=== PATIENT | female | born 1955 | race Caucasian/White ===

== ENCOUNTER 2019-07-27 09:07 | Emergency (ER) | payer BC ==
[~2019-07-27] VITALS: Ht 147.3 cm; Wt 63.5 kg
[2019-07-27 09:13] VITALS: BP_SYST 128
--- NOTE | 2019-07-27 09:52 | NUR ---
Patient to ER bed 7 to gown for evaluation. Side rails up. Report given to Vernon FELICIANO.
--- NOTE | 2019-07-27 09:53 | NUR ---
Pt is here for c/o lower abd pain for 2 days with slight diarrhea x2 today, no nausea or vomiting. Pt denied pain at moment, VSS, will continue to monitor pt.
[2019-07-27 09:55] LABS: BASOPHILS # (AUTO) 0.1 K/uL (0.0-0.2); BASOPHILS % (AUTO) 0.4 % (0.0-2.0); EOSINOPHILS # (AUTO) 0.2 K/uL (0.0-0.4); EOSINOPHILS % (AUTO) 1.3 % (0.0-4.0); HEMATOCRIT 39.4 % (36-48); HEMOGLOBIN 13.3 g/dL (12.0-16.0); LYMPHOCYTES # (AUTO) 1.2 K/uL (1.0-5.5); LYMPHOCYTES % (AUTO) 10.5 % (20.5-51.5); MEAN CORPUSCULAR HEMOGLOBIN 30 pg (27-31); MEAN CORPUSCULAR HGB CONC 34 % (32-36); MEAN CORPUSCULAR VOLUME 88 fL (79.0-98.0); MONOCYTES # (AUTO) 0.7 K/uL (0.0-1.0); NEUTROPHILS # (AUTO) 9.7 K/uL (1.8-7.7); NEUTROPHILS % (AUTO) 81.8 % (40.0-70.0); PLATELET COUNT (AUTO) 352 K/uL (130-430); RED BLOOD CELL COUNT(AUTO) 4.48 MIL/uL (4.2-6.2); WHITE BLOOD COUNT (AUTO) 11.9 K/uL (4.8-10.8)
--- NOTE | 2019-07-27 09:55 | NUR ---
Dr. Tillman at bedside to assess pt.
[2019-07-27 10:09] LABS: CALCIUM 8.9 mg/dL (8.4-11.0); CREATININE 0.63 mg/dL (0.55-1.30); POTASSIUM 3.6 mmol/L (3.5-5.1)
[2019-07-27 10:13] LABS: ALBUMIN 3.6 g/dL (3.4-4.8); TOTAL BILIRUBIN 0.7 mg/dL (0.0-1.0)
[2019-07-27] MEDS ORDERED: KETOROLAC TROMETHAMINE 30 MG VIAL IM ONE (10:15)
--- NOTE | 2019-07-27 10:15 | NUR ---
Pt went for CT with tech, denied pain at moment, no acute distress noted.
[2019-07-27 10:16] LABS: PROTHROMBIN TIME 10.4 SECS (9.5-12.5)
[2019-07-27 10:29] LABS: BILIRUBIN,URINE NEGATIVE (NEGATIVE); BLOOD, URINE 1+ (NEGATIVE); CLARITY/URINE CLEAR (CLEAR); COLOR,URINE YELLOW (YELLOW); GLUCOSE,URINE NEGATIVE (NEGATIVE); KETONES,URINE NEGATIVE (NEGATIVE); LEUKOCYTE ESTERASE ,URINE NEGATIVE (NEGATIVE); NITRITE, URINE NEGATIVE (NEGATIVE); PROTEIN URINE NEGATIVE (NEGATIVE); UROBILINOGEN,URINE 0.2 (0.2-1.0)
[2019-07-27 10:38] LABS: BACTERIA,URINE FEW /HPF (None Seen); WBC,URINE 0-3 /HPF (0-3)
[2019-07-27 10:39] LABS: URINE AMORPHOUS URATE 2+ /HPF (None Seen)
[2019-07-27 11:28] VITALS: BP_SYST 115
--- NOTE | 2019-07-27 11:28 | NUR ---
Patient given written and verbal discharge instructions and verbalizes understanding. ER MD discussed with patient the results and treatment provided. Patient in stable condition. ID arm band removed. IV catheter removed intact and dressing applied, no active bleeding.Rx of flagyl 500mg, Zofran 4mg ODT, Tramadol 50mg#20,Cipro 500mg, and Motrin 600mg given. Patient educated on pain management and to follow up with PMD. Pain Scale 2/10.Opportunity for questions provided and answered. Medication side effect fact sheet provided.
== END 2019-07-27 11:28 | disposition home or self-care (01) ==
LOC: SED 09:07
DX: K57.92 Diverticulitis of intestine, part unspecified, without perforation or abscess without bleeding (principal)
CPT/HCPCS: 36415; 74176; 80053; 81000; 83690; 85025; 85610; 85730; 96372; 99284; J1885